=== PATIENT | male | born 1985 | race Caucasian/White ===

== ENCOUNTER 2024-01-03 09:03 | Outpatient (CLI) | payer OTHER ==
--- NOTE | 2024-01-03 09:43 | Sleep Patient Instructions ---
Sleep Center Visit Summary - Patient Visit Information Reason for Visit: Initial consult for evaluation of sleep disordered breathing and other sleep issues. - Patient Instructions Instructions Attached: Sleep Study Home Monitor Additional Instructions: You will be completing a sleep study, either an in-lab polysomnography (PSG) or home sleep study (HST). You will follow-up in the sleep care office after the sleep study is completed to hear the results and talk about therapy, if needed. You will be called by our office staff to schedule this appointment, but you may contact us with any questions. - Clinic Information Contact: [facility] [address] [place] [address] [email or web address] T: [phone]
--- NOTE | 2024-01-03 09:45 | SLEEP CARE CONSULTATION ---
Information from patient questionnaire entered by Desirae Schmidt. I have reviewed and concur with the information entered by Desirae Schmidt. This document represents the service I personally performed and the decisions made by me, Katerina Bazzi ARNP. History of Present Illness Service Date and Time: 01/03/2024 0903 Reason for Visit: New patient Accompanied by: Partner (Padmini) Chief Complaint: reports: Insomnia, Unrefreshed sleep, Snoring, Excessive daytime sleepiness, Observed pauses in breathing, Fatigue, Frequent awakenings at night Date of Onset: 9MONTHS -1YRS Usual bedtime: [id number] Time it takes to fall asleep: 30 minutes Snores at night: Yes Observed to quit breathing while asleep: Yes Sleeps alone due to snoring: No Number of times waking at night: 2-3 now; before it was every 2 hours, 5-6 times Reasons for waking at night: reports: Choking, Snoring, Gasping for air, Pain, Bathroom, Other (UNKNOWN, NOISE) Toss, Turn, or Twitch while sleeping: Yes Recalls having dreams: No Usually gets out of bed at: 0600 Feels refreshed in the morning: No Morning headache: Yes (daily, last all day; from occipital to frontal lobe) Sleepy or fatigued during the day: Yes (occasional unintentional naps, like in front of TV or as passenger in car) Ever fallen asleep while driving: No (but don't usually drive) Takes day naps: No Dreams during day naps: No Prior sleep studies: No Additional HPI information: I had the pleasure of seeing SHASHI MCMULLEN today regarding the possibility of him having a sleep disorder. His current complaints are insomnia, unrefreshed sleep, snoring, excessive daytime sleepiness, observed pauses in breathing, fatigue and frequent night awakenings. He is accompanied by his significant other. He went through a home test through a turn down attendant the did not say he had sleep apnea. He switched to another doctor and then was referred for further evaluation. He snores loudly in his sleep and will stop breathing at night. He does not wake up feeling refreshed. He had gained a lot of weight, about 60+ pounds in the last 6-8 months. He was not sleeping very much but with change in doctor and starting medication for pre-diabetes and hypertension. He is staying in bed and waking up less. - Parasomnia Symptoms Ever been unable to move upon waking from sleep: No Walks in sleep: No Talks in sleep: No Ever acted out dreams in sleep: No Ever felt weak in the knees when startled or emotional: No Bothered by creepy, crawly, restless sensations in legs: Yes (had 2 back surgeries, nerve damage; nerve spasms/adolph tightening in back/leg) Problems with memory or concentration: No Subjective Initial [place] Sleepiness Scale score: 15 (01/03/24) Past Medical History Past Medical History: reports: Hypertension, Other (EXCESSIVE WEIGHT GAIN IN A SHORT TIME; 2 back surgeries; kidney stones; pre-diabetes) Social History 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 Patient is and lives in . Have you smoked in the past 12 months: No Alcohol use: No Caffeine use: Yes Caffeine amount and frequency: AN ICED COFFEE QAM Family History Family history of sleep disordered breathing: Yes Family Hx Sleep Apnea: Mother: Snoring, Sleep apnea - Treated, Grandparent: Snoring, Sleep apnea - Treated Allergies and Home Medications Known drug allergies: No Drug allergies reviewed: Yes Home medication list reviewed: Yes (as listed) Allergy and home medication list: Allergies No Known Drug Allergies Allergy (Verified 01/03/24 09:03) Home Medications Medication Instructions Recorded Confirmed Last Taken Type Biobeet See Rx Instructions .ROUTE .COMPLEX 01/03/24 Unknown History Cetirizine [ZyrTEC] See Rx Instructions .ROUTE .COMPLEX 01/03/24 01/03/24 Unknown History Cholecalciferol (Vitamin D3) See Rx Instructions .ROUTE .COMPLEX 01/03/24 01/03/24 Unknown History [Vitamin D3] Fluticasone [Flonase] See Rx Instructions .ROUTE .COMPLEX 01/03/24 01/03/24 Unknown History Ibuprofen See Rx Instructions .ROUTE .COMPLEX 01/03/24 Unknown History Losartan [Cozaar] See Rx Instructions .ROUTE .COMPLEX 01/03/24 01/03/24 Unknown History metFORMIN [Glucophage] See Rx Instructions .ROUTE .COMPLEX 01/03/24 01/03/24 Unknown History Review of Systems Weight gain over past 5 years: 90 Cardiovascular: reports: high blood pressure, palpitations, chest pain, irregular heart rate or pulse, leg or foot swelling Respiratory: reports: shortness of breath Gastrointestinal: reports: nausea, abdominal pain Urinary: reports: frequency Neurological: reports: headaches Psychiatric: reports: anxiety, depression, mood disorder Ear/Nose/Throat: reports: nasal congestion, sinus problems, dry mouth/throat, wisdom teeth removed. denies: tonsillectomy Endocrine: reports: sluggishness, too hot or cold, excessive thirst, increased urination, unexplained weakness Musculoskeletal: reports: joint pain, neck pain, back pain, joint swelling, muscle pain or cramping Immunologic: reports: sneezing, allergies to food or environment ([employer]) Physical Exam Vital signs obtained and entered by: DESIRAE Barbour MA Blood Pressure: 140/91 (RIGHT ARM) Cuff size: long Heart Rate: 76 O2 Saturation: 97 Height: 5 ft 9.5 in Weight: 271 lb 12.8 oz Body Mass Index: 39.5 BMI Classification: Obese Neck circumference: 19 Nostrils: patent to airflow Mouth and throat: narrow oropharynx Soft palate: long Hard palate: normal Uvula: normal Uvula visualization: 25% Mallampati Class III Tongue: enlarged in size with teeth mendez on lateral edges Tonsils: 2+ Neck: normal w/o lymphadenopathy or thyromegaly Heart: regular rate and rhythm Lungs: clear bilaterally Impression and Plan 1. Suspected Obstructive Sleep Apnea-Hypopnea Syndrome, as suggested by a history of loud and irregular snoring, observed cessation of breath while asleep, gasping or choking in sleep, morning headache, frequent awakening during the night, unrefreshed sleep, and excessive daytime sleepiness. Narrow oropharynx and obesity are common predisposing factors for obstructive sleep apnea-hypopnea syndrome. I recommend proceeding to polysomnography to confirm the diagnosis and to assess severity. If the patient has significant sleep disordered breathing, a manual CPAP titration study will also be performed to find the optimal treatment pressure. I informed the patient of what the sleep studies involve and after some discussion, obtained agreement to proceed. The pathophysiology of obstructive sleep apnea-hypopnea syndrome was discussed with the patient and health risks of cardiovascular and cerebrovascular disease if not treated. Risks of drowsy driving discussed in detail and patient advised to avoid long distance driving and to machine puller and laster at the first sign of drowsiness. Patient agreed to plan. * Schedule polysomnography * Avoid long distance driving or driving when feeling sleepy. * Avoid alcohol, sedative and muscle relaxant around bedtime. * Attempt to lose weight. * Review instructions provided by trained office staff on how to prepare for the sleep study. * Return for follow-up after sleep study completed. Counseling Topics: Weight loss health impact Plan: PSG/HST and follow up Time Spent with Patient (minutes): 32
[2024-01-03 09:59] VITALS: BP 140/91; O2SAT 97
== END 2024-01-03 09:04 | disposition home or self-care (01) ==
LOC: SC 09:03
PROVIDERS: ATTEND Nurse Practitioner Family
DX: G47.10 Hypersomnia, unspecified (principal); R06.83 Snoring; R06.81 Apnea, not elsewhere classified; G47.8 Other sleep disorders; R51.9 Headache, unspecified; E66.9 Obesity, unspecified; Z68.39 Body mass index [BMI] 39.0-39.9, adult
CPT/HCPCS: 99203; 99212

== ENCOUNTER 2024-01-09 13:55 | Outpatient (CLI) | payer OTHER | END 2024-01-09 13:56 | disposition home or self-care (01) | LOC: SC 13:55 | PROVIDERS: ATTEND Nurse Practitioner Family | DX: G47.10 Hypersomnia, unspecified (principal); R09.02 Hypoxemia; E66.9 Obesity, unspecified; Z68.41 Body mass index [BMI] 40.0-44.9, adult | CPT/HCPCS: 95806 ==

== ENCOUNTER 2024-01-31 14:03 | Outpatient (CLI) | payer OTHER ==
--- NOTE | 2024-01-31 15:04 | Sleep Patient Instructions ---
Sleep Center Visit Summary - Patient Visit Information Reason for Visit: Sleep study follow-up - Patient Instructions Instructions Attached: CPAP Additional Instructions: You are being started on CPAP therapy with pressure setting at 4-15 cmH2O. You will need to call the sleep care office to set up your follow up once you have your CPAP machine to check compliance and response to therapy at that time. You may call the office with any concerns about pressure feeling too low or too much for adjustment, if needed. You should contact DME supplier for any questions or concerns about mask or equipment. Please call office to schedule a follow up appointment in the sleep care office one month after obtaining new device. - Clinic Information Contact: [facility] [address] [place] [address] [email or web address] T: [phone]
--- NOTE | 2024-01-31 15:07 | SLEEP CARE CONSULTATION ---
Information from patient questionnaire entered by Juana Garcia. I have reviewed and concur with the information entered by Juana Garcia. This document represents the service I personally performed and the decisions made by me, Katerina Bazzi ARNP. History of Present Illness Service Date and Time: 01/31/2024 1403 Accompanied by: Spouse Initial [place] Sleepiness Scale score: 15 (01/03/24) Current [place] Sleepiness Scale score: 10 (01/31/24) Additional HPI information: SHASHI MCMULLEN returns for follow up and results of the recently performed home sleep study. The sleep study done on 01/09/24 showed mild obstructive sleep apnea with an average AHI of 11.9 and britany oxygen saturation of 88%. I explained the pathophysiology behind obstructive sleep apnea. We then spent quite a bit of time discussing different treatment options. For mild obstructive sleep apnea, surgery and oral appliance are alternatives to nasal CPAP therapy but in moderate or severe cases, nasal CPAP is the most effective and reliable treatment. Because apnea is primarily in supine position, then positional management therapy could be effective. Methods discussed such as positioning with pillows, using a T-shirt with tennis balls in the back or commercial products that have a pillow format on back to prevent supine sleep. I reviewed the impact of weight changes on sleep apnea and strongly recommended losing weight. After some discussion, the patient opted to go with the nasal CPAP therapy. Nasal autoCPAP set at 4-15 cmH20 will be ordered with rationale explained. A manual titration study will be ordered if unable to find optimal pressure with office adjustments. I explained how CPAP machine works and what to expect when using the machine. Using CPAP every night in order to get used to it was emphasized. Patient advised to put CPAP mask on before getting into bed so as not to fall asleep without CPAP. To assist acclimation to CPAP use, it could also be used for a short time during day while reading or watching TV. The patient was instructed to call the CPAP supplier to discuss any mechanical problem that may occur. If the mask given is uncomfortable or is difficult to keep on through the night even with adjustment, contact the CPAP supplier as many will replace with another mask style if notified before 30 days. If snoring or perceives is not getting enough air or too much air from the machine, notify this office. Patient does not drink alcohol. Patient was cautioned about risks of drowsy driving until sleepiness symptoms resolve. Patient denies drowsy driving. Sleep Study - Results Type of Sleep Study: Home sleep study Prior sleep studies: No Year and Where: 2023 [facility] Polysomnography/Home Sleep Study results: Physician Impression: The quality of the study is good. The length of the study is adequate (> 240 minutes). Please also see the tabulated and graphic data. 1. Obstructive Sleep Apnea-Hypopnea (ICD-10 G47.33), mild, with an AHI of 11.9/hr and britany SaO2 of 88%. During the study, the patient had 40 apneas (40 obstructive, 0 central, 0 mixed) and 57 hypopneas. The longest episode lasted 94.0 seconds. The respiratory events occurred almost exclusively during supine sleep (supine AHI was 32.2 and non-supine, 4.95). 2. Hypoxemia (ICD-10 R09.02), minimal, with the lowest oxygen saturation of 88 % and 0.4 minutes with SaO2 under 90%. Baseline oxygen saturation was normal (Average oxygen saturation was 96%). Allergies and Home Medications Known drug allergies: No Drug allergies reviewed: Yes Home medication list reviewed: Yes (no changes) Allergy and home medication list: Allergies No Known Drug Allergies Allergy (Verified 01/03/24 09:03) Review of Systems Review of systems same as previous: Yes (no changes) Physical Exam Vital signs obtained and entered by: Katerina Chamberlain NP Blood Pressure: 154/93 Cuff size: long (right arm) Heart Rate: 71 O2 Saturation: 98 Height: 5 ft 9.5 in Weight: 266 lb 12.8 oz Weight change since last visit: 5 lb loss Body Mass Index: 38.8 BMI Classification: Obese Impression and Plan 1. Obstructive Sleep Apnea-Hypopnea Syndrome, mild, with lowest oxygen saturation of 88%. Obviously this is the cause of the patients symptoms of unrefreshed sleep, and excessive daytime sleepiness. Positive pressure therapy could benefit hypertension, depression and PTSD. As mentioned above, the patient will be started on nasal autoCPAP therapy with pressure set at 4-15 cmH2 O. A manual titration study will be completed if unable to find optimal treatment pressure with office adjustments. Compliance guidelines also reviewed. A copy of compliance guidelines will be given for reference at check out. Because the apnea is more severe supine, I instructed to avoid sleeping supine using pillow positioning until able to start CPAP use. 2. Obesity, unspecified. Currently patients BMI is 38.8. He has lost weight. Obesity increases the risk of apnea, CPAP pressure requirements and overall health risks especially cardiovascular and diabetes. Thus patient is advised to continue to try to lose weight. * Nasal auto CPAP therapy, pressure at 4-15 cm H2O. * Continue to try to lose weight. * Avoid alcohol consumption near bedtime. * Avoid supine sleep until using CPAP. * The patient is again cautioned about driving until sleepiness completely resolves. * Return one month after CPAP obtained. I will assess response to therapy and compliance at that time. Counseling Topics: Weight loss health impact Prescriptions: Auto CPAP Follow up with Sleep Care in: other (compliance followup) Visit Type: In Office Provider Statement: I spent 100% of the Face to Face Visit with the patient with greater than 50% spent counseling the patient and coordination of care.
[2024-01-31 15:13] VITALS: BP 154/93; O2SAT 98
== END 2024-01-31 14:04 | disposition home or self-care (01) ==
LOC: SC 14:03
PROVIDERS: ATTEND Nurse Practitioner Family
DX: G47.33 Obstructive sleep apnea (adult) (pediatric) (principal); E66.9 Obesity, unspecified; Z68.38 Body mass index [BMI] 38.0-38.9, adult
CPT/HCPCS: 99212; 99213